=== PATIENT | male | born 1975 | race Hispanic/Latino ===

== ENCOUNTER 2018-08-20 11:46 | Emergency (ER) | payer BC ==
[2018-08-20 12:12] LABS: #Basophils 0.1 thou/uL (0.0-0.2); #Eosinphils 0.5 thou/uL (0.0-0.7); #Lymphocytes 4.4 thou/uL (1.20-3.40); #Monocytes 0.9 thou/uL (0.11-0.59); #Neutrophils 3.5 thou/uL (1.40-6.50); %Basophils 1.1 % (0.0-1.0); %Lymphocytes 47.4 % (21.0-51.0); %Monocytes 9.5 % (0.0-10.0); %Neutrophils 37.1 % (42.0-75.0); Hemoglobin 16.5 g/dL (14.0-18.0); Mean Corpuscular Hemoglobin 27.9 pg (27.0-31.0); Mean Platelet Volume 7.6 fL (7.4-10.4); Platelet Count 255 thou/uL (130-400); Red Blood Cell (RBC) Count 5.91 mill/uL (4.70-6.10); White Blood Cell (WBC) Count 9.4 thou/uL (4.8-10.8)
--- NOTE | 2018-08-20 12:32 | RAD ---
EXAM: Chest one view: HISTORY: Chest pain and shortness of breath COMPARISON: None FINDINGS: Heart size: Within normal limits. Lungs: Minimal linear parenchymal change, horizontal, in the left lower lobe, nonspecific possibly ch ronic change versus very minimal subsegmental atelectasis. No evidence for pneumonia, pleural effusion, acute edema, or pneumothorax, or other significant acute process. IMPRESSION: No significant acute intrathoracic disease. Very minimal horizontal nonspecific linear change in the left base.
[2018-08-20 12:43] LABS: ALT (SGPT) 51 U/L (8-55); AST (SGOT) 26 U/L (5-34); Albumin 4.3 g/dL (3.5-5.0); Alkaline Phosphatase 107 U/L (40-150); Anion Gap 14 mmol/L (10-20); BUN (Urea Nitrogen) 11 mg/dL (8.9-20.6); Bilirubin, Total 1.4 mg/dL (0.2-1.2); Calc. Creatinine Clearance 0 mL/min (70-130); Calcium 9.4 mg/dL (7.8-10.44); Carbon Dioxide 24 mmol/L (22-29); Chloride 102 mmol/L (98-107); Estimated GFR-MDRD 80; Globulin 3.5 g/dL (2.4-3.5); Glucose 116 mg/dL (70-105); Protein, Total 7.8 g/dL (6.0-8.3); Sodium 137 mmol/L (136-145)
[2018-08-20 12:47] LABS: Potassium 2.9 mmol/L (3.5-5.1)
[2018-08-20] MEDS ORDERED: Potassium Chloride 20 MEQ TAB ONE (13:35)
== END 2018-08-20 14:02 | disposition home or self-care (01) ==
LOC: ERS 11:46
DX: E87.6 Hypokalemia (principal); R00.2 Palpitations; F41.9 Anxiety disorder, unspecified
CPT/HCPCS: 71045; 80053; 84484; 85025; 85379; 93005; 96360; 96361

== ENCOUNTER 2018-12-10 09:16 | Emergency (ER) | payer BC | END 2018-12-10 10:07 | disposition home or self-care (01) | LOC: ERS 09:16 | DX: R10.9 Unspecified abdominal pain (principal); I10 Essential (primary) hypertension; Z79.899 Other long term (current) drug therapy; V89.2XXA Person injured in unspecified motor-vehicle accident, traffic, initial encounter | CPT/HCPCS: 99283 ==